=== PATIENT | female | born 1970 | race Caucasian/White ===

== ENCOUNTER → 2016-08-07 | Outpatient (CLI) | payer OTHER ==
[~2016-08-07] MED LIST: /AUGM875TA OR; ACET65TA OR; ALTA5CAP PO; AMLO10TA PO; AMLO2.5T OR; BENT10CA PO; CHLO50TA PO; COLA100C2 OR; CRES20TA OR; DICY10CA13 PO; GEMF600T PO; GLUC850T PO; INSUHUMDS SC; INSULANT SC; JANUVIA PO; METO25TAB PO; MULTIVIT PO; NYSTATIN TOP; No Historical Meds; OMEP20TA7 PO; PERC5TAB8 OR; PERCOCET PO; PRIL20CA9 PO; SLOWTAB OR; VITA500T OR; ZOLO50TA OR
--- NOTE | 2016-08-08 08:55 | REP ---
MRI right knee without contrast: History: Right knee pain. Arthritis. Popping and locking sensation. Comparison radiographs are reviewed from March 14, 2014. These show medial and patellofemoral osteoarthritic spurring. Technique: Sagittal, axial and coronal imaging planes are utilized for T1, proton density and T2-weighted scans obtained in the usual fashion with and without fat saturation. MRI findings: There is a large knee joint effusion. A moderate sized Jackson's cyst is seen. There are multiple discernible loose bodies within the elongate Jackson's cyst both cranially and caudally. The largest of these measures 8 mm in greatest diameter. There are suprapatellar plica. Cortical and medullary bone signal intensity are essentially normal. There is one area of subcortical marrow edema in the posterior aspect of the medial femoral condyle suggesting focal chondromalacia with mild bony overgrowth and a small articular cartilage defect. There is osteoarthritic spurring visible along the medial compartment of the joint and to a lesser extent laterally. Moderate patellofemoral spurring is noted. There is advanced chondromalacia involving lateral patellar facet with articular cartilage fissuring and some focal partial thickness articular cartilage loss. There are similar changes on the opposing surface of the femoral trochlear articular cartilage. There is subcutaneous edema along the proximal and distal aspect of the otherwise intact patellar tendon. Quadriceps tendon is unremarkable. Anterior and posterior cruciate ligaments have an intact appearance. There is no evidence of medial or lateral collateral ligament disruption. A normal fabella is seen. There is an inner free margin tear in the posterior horn of the medial meniscus. Some central increased signal intensity is seen in the posterior horn and body of the medial meniscus consistent with intrameniscal degeneration. No lateral meniscal tear is appreciated. Impression: 1. Jackson's cyst, large effusion, multiple cartilaginous loose bodies. 2. Three compartment osteoarthritis and chondromalacia changes. 3. Inner free margin tear posterior horn medial meniscus. 4. Prepatellar tendon edema, question patellar tinnitus. Signed by Butch oLu MD 08/08/2016 02:45 P
== END ==
LOC: M RAD 16:57
PROVIDERS: ATTEND Orthopaedic Surgery
DX: M25.461 Effusion, right knee (principal); M71.21 Synovial cyst of popliteal space [Baker], right knee; M17.11 Unilateral primary osteoarthritis, right knee; M94.261 Chondromalacia, right knee; S83.241A Other tear of medial meniscus, current injury, right knee, initial encounter; R60.0 Localized edema; X58.XXXA Exposure to other specified factors, initial encounter; Y92.9 Unspecified place or not applicable; Y93.9 Activity, unspecified; Y99.9 Unspecified external cause status

== ENCOUNTER → 2016-08-30 | Outpatient (REF) | payer OTHER | LOC: M LAB REF 16:29 | PROVIDERS: ATTEND Nurse Practitioner Family | DX: Z01.411 Encounter for gynecological examination (general) (routine) with abnormal findings (principal); N89.8 Other specified noninflammatory disorders of vagina ==

== ENCOUNTER → 2016-09-14 | Outpatient (CLI) | payer OTHER | LOC: M LAB 09:24 | PROVIDERS: ATTEND Nurse Practitioner Family | DX: E11.9 Type 2 diabetes mellitus without complications (principal); E78.5 Hyperlipidemia, unspecified ==

== ENCOUNTER 2016-10-09 18:53 | Emergency (ER) | payer OTHER ==
[~2016-10-09] VITALS: Ht 162.6 cm; Wt 90.7 kg
[2016-10-09] MEDS ORDERED: [UNRECOGNIZED DRUG - REMARK] (19:05)
[2016-10-09] MEDS ORDERED: LISI40TAB PO (19:05)
[2016-10-09 20:35] LABS: BASO % 0.4 % (0.0-1.0); EOS # 0.1 K/mm3 (0.0-0.50); EOS % 0.8 % (0.0-3.0); LARGE UNSTAINED CELL # 0.2 K/mm3 (0.0-0.4); LARGE UNSTAINED CELL % 1.9 % (0.0-4.0); LYMPH # 2.2 K/mm3 (1.5-4.5); LYMPH % 21.8 % (24.0-44.0); MEAN CORPUSCULAR HEMOGLOBIN 31.1 pg (27.0-33.0); MEAN CORPUSCULAR HGB CONC 34.3 g/dl (32.0-36.5); MEAN CORPUSCULAR VOLUME 90.4 fl (80.0-96.0); MONO # 0.6 K/mm3 (0.0-0.8); MONO % 6.2 % (0.0-5.0); NEUTROPHILS # 6.9 K/mm3 (1.8-7.7); NEUTROPHILS % 68.9 % (36.0-66.0); PLATELET COUNT, AUTOMATED 410 k/mm3 (150-450); RED CELL DISTRIBUTION WIDTH 12.3 % (11.5-14.5)
[2016-10-09 20:55] LABS: ANION GAP 8 MEQ/L (8-16); BLOOD UREA NITROGEN 15 MG/DL (7-18); CALCIUM LEVEL 9.2 MG/DL (8.5-10.1); CARBON DIOXIDE LEVEL 28 MEQ/L (21-32); CHLORIDE LEVEL 102 MEQ/L (98-107); CREATININE FOR GFR 0.93 MG/DL (0.55-1.02); GLOMERULAR FILTRATION RATE > 60.0 (>58); GLUCOSE, FASTING 144 MG/DL (70-105); POTASSIUM SERUM 3.8 MEQ/L (3.5-5.1); SODIUM LEVEL 138 MEQ/L (136-145); URIC ACID 4.7 MG/DL (2.6-6.0)
[2016-10-09 20:57] LABS: ERYTHROCYTE SEDIMENTATION RATE 34 mm/hr (0-20)
[2016-10-09] MEDS ORDERED: ceFAZolin SOD 1 GM in D5W MINI-BAG PLUS 50 ML IV ONE (22:00)
[2016-10-09] MEDS ORDERED: KETOROLAC 30 MG/ML VIAL (J1885) IV ONE (22:00)
[2016-10-09] MEDS ORDERED: KEFL500C7 PO (22:53)
[2016-10-09] MEDS ORDERED: IBUP600T26 PO (22:53)
[2016-10-09 23:11] VITALS: BP 129/78
--- NOTE | 2016-10-10 01:13 | REP ---
Clinical:,. Rule out foreign body. Technique: AP and lateral views of the right foot. Findings: Age-related changes are appreciated. No obvious acute fracture or dislocation. No subcutaneous emphysema or radiodense foreign body. Impression: Age-related changes. No foreign body. Signed by Agusto Dowd MD 10/10/2016 01:04 A
--- NOTE | 2016-10-10 01:19 | REP ---
Clinical: Trauma. Foreign body. Technique: AP, lateral, bilateral oblique views right foot . Findings: The osseous structures and joint spaces are intact and normal. There is no evidence for acute fracture or dislocation. Surrounding soft tissues are unremarkable. No subcutaneous emphysema or significant radiodense foreign body. Small flecks of foreign body material noted in the underline subcutaneous tissues at the level of the fifth tarsometatarsal joint should be correlated clinically. Impression: No acute fracture or dislocation. Questionable small foreign body material. Signed by Agusto Dowd MD 10/10/2016 01:11 A
--- NOTE | 2016-10-10 13:09 | ED PDOC ---
Post-Departure Follow-Up radiology report faxed to PCP Kaitlin Avery MD October 10, 2016 13:09
== END 2016-10-09 23:22 | disposition home or self-care (01) ==
LOC: M ED 20:05
DX: L03.115 Cellulitis of right lower limb (principal); S90.821A Blister (nonthermal), right foot, initial encounter; X58.XXXA Exposure to other specified factors, initial encounter; Y92.89 Other specified places as the place of occurrence of the external cause; Y93.89 Activity, other specified; Y99.8 Other external cause status; Z79.4 Long term (current) use of insulin; Z79.899 Other long term (current) drug therapy; Z91.018 Allergy to other foods; Z91.09 Other allergy status, other than to drugs and biological substances
CPT/HCPCS: 73620; 73630; 80048; 84550; 85025; 85652; 86140; 87070; 87077; 87186; 87205; 96365; 99282; J0690; J1885

== ENCOUNTER 2016-10-15 21:23 | Observation (INO) | payer OTHER ==
[~2016-10-15] VITALS: Ht 162.6 cm; Wt 90.7 kg
[~2016-10-15 21:23] MED LIST changes: +IBUP600T26 PO; +KEFL500C7 PO; +LEVEMIR (INSULIN DETEMIR) 1 UNITS/0.01ML SC SCH; +LISI40TAB PO; +LISINOPRIL 5 MG TAB PO SCH; +[UNRECOGNIZED DRUG - REMARK]
[2016-10-15 22:27] LABS: BASO % 0.2 % (0.0-1.0); EOS # 0.1 K/mm3 (0.0-0.50); EOS % 1.2 % (0.0-3.0); LARGE UNSTAINED CELL # 0.2 K/mm3 (0.0-0.4); LARGE UNSTAINED CELL % 1.8 % (0.0-4.0); LYMPH # 1.7 K/mm3 (1.5-4.5); LYMPH % 18.3 % (24.0-44.0); MEAN CORPUSCULAR HEMOGLOBIN 30.1 pg (27.0-33.0); MEAN CORPUSCULAR HGB CONC 33.5 g/dl (32.0-36.5); MEAN CORPUSCULAR VOLUME 89.8 fl (80.0-96.0); MONO # 0.5 K/mm3 (0.0-0.8); MONO % 5.6 % (0.0-5.0); NEUTROPHILS # 6.8 K/mm3 (1.8-7.7); NEUTROPHILS % 72.8 % (36.0-66.0); PLATELET COUNT, AUTOMATED 380 k/mm3 (150-450); RED CELL DISTRIBUTION WIDTH 12.3 % (11.5-14.5); WHITE BLOOD COUNT 9.4 K/mm3 (4.0-10.0)
[2016-10-15 22:35] LABS: ANION GAP 8 MEQ/L (8-16); BLOOD UREA NITROGEN 15 MG/DL (7-18); CALCIUM LEVEL 8.3 MG/DL (8.5-10.1); CARBON DIOXIDE LEVEL 28 MEQ/L (21-32); CHLORIDE LEVEL 100 MEQ/L (98-107); CREATININE FOR GFR 0.81 MG/DL (0.55-1.02); GLOMERULAR FILTRATION RATE > 60.0 (>58); GLUCOSE, FASTING 272 MG/DL (70-105); POTASSIUM SERUM 3.9 MEQ/L (3.5-5.1); SODIUM LEVEL 136 MEQ/L (136-145)
[2016-10-15] MEDS ORDERED: BASA100I SC ×2 (22:48)
[2016-10-15] MEDS ORDERED: ATOR1TAB21 PO (22:48)
[2016-10-15] MEDS ORDERED: ASPI1TAB PO (22:48)
[2016-10-15] MEDS ORDERED: CLIN1CAP5 PO (22:48)
[2016-10-15] MEDS ORDERED: METO25TA74 PO (22:48)
[2016-10-15] MEDS ORDERED: VITA200016 PO (22:48)
[2016-10-16] MEDS ORDERED: ceFAZolin SOD 1 GM in D5W MINI-BAG PLUS 50 ML IV ONE ×2
[2016-10-16] MEDS ORDERED: METOPROLOL SUCC *XL* 25MG TAB (TopROL *XL*) PO ONE
[2016-10-16] MEDS ORDERED: LISI-542 PO (00:21)
[2016-10-16] MEDS ORDERED: METO25TAB PO (00:23)
[2016-10-16] MEDS ORDERED: IBUP600T26 PO (00:24)
[2016-10-16] MEDS ORDERED: GLUCOSE 4 GM CHEW TABLET PO PRN (00:45)
[2016-10-16] MEDS ORDERED: GLUCAGON FOR INJ 1 MG VIAL (J1610) SC PRN (00:45)
[2016-10-16] MEDS ORDERED: DEXTROSE 50% 50 ML SYRINGE IV PRN (00:45)
[2016-10-16] MEDS ORDERED: ACETAMINOPHEN 500 MG TAB PO PRN (00:45)
--- NOTE | 2016-10-16 01:11 | REP ---
Clinical: Pain and swelling. Ulcer and cellulitis. Technique: AP, lateral, bilateral oblique views of the right foot. Findings: Degenerative changes primarily involving the ankle and midfoot are appreciated along with overlying soft tissue swelling. No subcutaneous emphysema or radiodense foreign body identified. No acute fracture or dislocation. No periosteal reaction. Impression: Degenerative changes. Soft-tissue swelling. No radiographic evidence to suggest acute osteomyelitis. Signed by Agusto Dowd MD 10/16/2016 01:02 A
[2016-10-16] MEDS: oxyCODONE 5MG TAB PO PRN ×2 (02:54→09:01)
[2016-10-16 03:45] VITALS: BP 162/90
--- NOTE | 2016-10-16 05:56 | HPE ---
DATE OF ADMISSION: 10/16/2016 PRIMARY CARE PHYSICIAN: NILDA Mai CHIEF COMPLAINT: Right lower extremity pain and swelling. HISTORY OF PRESENT ILLNESS: Ms. Parrish is a 46-year-old female with past medical history of diabetes and hypertension who presented to emergency room (ER) due to experiencing right lower extremity pain. Patient expressed that about 2 weeks ago patient had stepped on a staple, which penetrated through the skin of her right foot. She noticed pain which was sharp 5/10, stationary and bleeding. She noticed progressive increased in discharge with yellowish color as well as pain. Patient expressed that she went to [facility], which prescribe her clindamycin. Patient expressed that she has been taking the antibiotic, however, she noticed that her right lower extremity became swelled and more erythema, and the pain increased to the point that patient could not tolerate. Patient also expressed that yesterday she had one episode of chills. However, patient denies having any fever or night sweats. She thought that her chills is because of her glucose level since she has diabetes. she called emergency room medical representative (EMT) and she came to the ER. Patient denies altered mental status or lose of consciousness, lightheadedness or dizziness. Patient also denies seizure type activities. Patient expressed that her ambulation has decreased due to the pain. Patient has tingling and mild numbness in the right lower extremity and increased fatigue for the past week. ALLERGIES: No known drug allergies however patient has allergy to TAPE, which causes erythema. PAST MEDICAL HISTORY: 1. Diabetes mellitus. 2. Hypertension. PAST SURGICAL HISTORY: 1. Left lumpectomy. 2. Partial hysterectomy. HOME MEDICATION: - Norvasc 10 mg by mouth daily - aspirin 81 mg by mouth - atorvastatin 20 mg by mouth daily - Basaglar KwikPen 80 units before food, every morning - KwikPen 30 units before food, every evening - clindamycin 150 mg by mouth every 6 hours - dicyclomine 10 mg by mouth three times a day - gemfibrozil 600 mg by mouth twice a day - ibuprofen 600 mg by mouth every 6 hours as needed, pain - Humalog 10 mg before food three times a day before meal - lisinopril 5 mg by mouth nightly - metoprolol 25 mg by mouth twice a day - vitamin D 2000 unit by mouth every evening SOCIAL HISTORY: Patient denies history of smoking. Patient also denies history of alcohol usage or illicit drug use. Patient lives with a roommate. Patient has seven dogs, one cat, one lizard. Patient has not traveled outside the [place]. FAMILY HISTORY: Patient does not know about her parents. Grandma has hypertension and diabetes. Patient has a brother. However, patient does not know about patient's brother health assess. Patient has two boys and 1 girl all healthy. REVIEW OF SYSTEMS: GENERAL: Patient denies fever. However, patient has one episode of chills. Patient however, denies night sweats. HEENT: Patient denies acute vision or hearing changes. Patient denies headache , lightheadedness or dizziness. Patient also denies sinusitis. NECK: Patient denies lumps, bumps or decreased range of motion of her neck. HEART: Patient denies chest pain, palpitation or skipping heartbeat. LUNGS: Patient denies shortness of breath, coughing. ABDOMEN: Patient denies abdominal pain, nausea, vomiting diarrhea, constipation , melena, hematochezia or hemoptysis. NEUROLOGIC: Patient denies history of transient ischemic attack (TIA), CVA, or seizure-type activities. PHYSICAL EXAMINATION: VITAL SIGNS: Temperature 97.1, pulse 105, respiratory rate 20, blood pressure 187/91, pulse oximetry 97 on room air. GENERAL APPEARANCE: Patient was lying in bed, no acute distress. Patient was awake, alert and oriented to time, place and person. HEENT: Normocephalic, atraumatic. Pupils are equal. Oral mucosa is moist. NECK: Soft, supple. No lymphadenopathy. No thyromegaly. HEART: Regular rate and rhythm. Normal S1, S2. ABDOMEN: Soft, nontender, obese. Positive bowel sounds in all quadrants. EXTREMITY: Patient has right lower extremity swelling. There is also a site of penetration on the sole of the foot in the base of the 2nd and 3rd digit. However, no active bleeding or discharge was noticed. Patient also has blister at the base of the first digit that has burst. However, no active bleeding was noticed. Patient has tenderness to palpation on the right lower extremity as well as erythema on the supine surface of the foot. Patient has normal range of motion on the left lower extremity. However, range of motion of the right lower extremity has decreased due to the pain. Patient has normal sensation of both lower extremities as well as upper extremities. NEUROLOGICAL: Cranial nerves II-XII intact. No focal deficiencies. LABORATORY DATA: White blood cells 9.4, red blood cells 4.02, hemoglobin 12.1, hematocrit 36.2, MCV 89.8, MCH 30.1, MCHC 33.5, RDW 12.3, platelet count 380, neutrophil percentage 72.8, lymphocyte percentage 18.3, monocyte percentage 5.6, eosinophil percentage 1.2, basophil percentage 0.2, leukocyte percentage 1.8. Sodium 136, potassium 3.9, chloride 100, carbon dioxide 28, anion gap 8, BUN 15, creatinine 0.81, glomerular filtration rate more than 60, fasting glucose 272, calcium 8.3. Blood culture is pending. Wound culture is pending. Foot x-ray, which shows degenerative changes, soft tissue swelling. No radiological evidence of suggestive acute osteomyelitis. ASSESSMENT AND PLAN: 1. Cellulitis of the right lower extremity. X-ray was negative for acute osteomyelitis. Patient received one dose of ceftaroline at the ER. At this time, we have started patient on ceftaroline 600 mg IV every 12. Also, for controlling the pain, patient is on oxycodone. we have ordered blood culture and wound culture and the gram stain result is pending at this time. 2. Diabetes mellitus. patient is on sliding scale as well as consistent carb diet. 3. Hypertension. We will continue patient on Norvasc 10 mg by mouth daily, Lopressor 25 mg by mouth twice a day. 4. Hyperlipidemia. We will continue patient on gemfibrozil 600 mg by mouth and Lipitor 20 mg by mouth daily. 5. Deep venous thrombosis (DVT) prophylaxis. We will continue patient on Lovenox. My preceptor for this patient encounter was Ariana Bowser MD. The preceptor was physically present in the building during the encounter and was fully available. As needed, all aspects of the patient interview, examination, medical decision making process, and medical care plan development were reviewed and approved by the preceptor. The preceptor is aware and concurs with the plan as stated in the body of this note and will attest to such by his/her co-signature. WENDI
[2016-10-16] MEDS ORDERED: HumaLOG INSULIN (NovoLOG) PER UNIT SC SCH ×2 (07:30→21:00)
[2016-10-16 07:31] LABS: MEAN CORPUSCULAR HGB CONC 34.5 g/dl (32.0-36.5); MEAN CORPUSCULAR VOLUME 89.8 fl (80.0-96.0); RED CELL DISTRIBUTION WIDTH 12.2 % (11.5-14.5); WHITE BLOOD COUNT 8.7 K/mm3 (4.0-10.0)
[2016-10-16 07:42] LABS: ANION GAP 6 MEQ/L (8-16); BLOOD UREA NITROGEN 11 MG/DL (7-18); CALCIUM LEVEL 8.7 MG/DL (8.5-10.1); CARBON DIOXIDE LEVEL 29 MEQ/L (21-32); CHLORIDE LEVEL 102 MEQ/L (98-107); CREATININE FOR GFR 0.72 MG/DL (0.55-1.02); GLOMERULAR FILTRATION RATE > 60.0 (>58); GLUCOSE, FASTING 173 MG/DL (70-105); MAGNESIUM LEVEL 1.6 MG/DL (1.8-2.4); POTASSIUM SERUM 3.9 MEQ/L (3.5-5.1); SODIUM LEVEL 137 MEQ/L (136-145)
[2016-10-16 08:00] VITALS: BP 143/72
[2016-10-16 09:00] VITALS: BP 143/72
[2016-10-16] MEDS ORDERED: GEMFIBROZIL 600 MG TAB PO SCH (09:00)
[2016-10-16] MEDS ORDERED: ENOXAPARIN 40 MG/0.4 ML SYRINGE (J1650) SC SCH (09:00)
[2016-10-16] MEDS ORDERED: LEVEMIR (INSULIN DETEMIR) 1 UNITS/0.01ML SC SCH (09:00)
[2016-10-16] MEDS ORDERED: ASPIRIN 81 MG ENTERIC TAB PO SCH (09:00)
[2016-10-16] MEDS ORDERED: amLODIPine 10 MG TAB PO SCH (09:00)
[2016-10-16] MEDS ORDERED: METOPROLOL TART 25 MG TABLET PO SCH (09:00)
[2016-10-16] MEDS ORDERED: SENOKOT S TAB PO SCH (09:00)
[2016-10-16] MEDS ORDERED: ATORVASTATIN 20 MG TAB PO SCH (09:00)
[2016-10-16] MEDS ORDERED: CEFTAROLINE FOSAMIL 600 MG in D5W MINI-BAG PLUS 50 ML IV SCH (12:00)
[2016-10-16] MEDS ORDERED: DALV1SOL IV (12:03)
--- NOTE | 2016-10-17 11:36 | DSES ---
DATE OF ADMISSION: 10/16/2016 DATE OF DISCHARGE: 10/16/2016 PRIMARY CARE PROVIDER: Liliana Gorman FINAL DIAGNOSES: 1. Cellulitis. 2. Obesity. 3. Diabetes mellitus type 2. 4. Hypertension. 5. Dyslipidemia. HISTORY OF PRESENT ILLNESS: This is a 46-year-old female patient with a known medical history of type 2 diabetes and hypertension who presented to the emergency room due to experiencing right lower extremity pain. The patient expressed that about 2 weeks ago, the patient had stepped on a staple, which penetrated through the skin on her right foot. After that, the patient expressed that she felt pain and bleeding and noticed mild increase in discharge of yellowish color. The patient expressed that she had been given clindamycin but has not been improved much. HOSPITAL COURSE: The patient was admitted to the hospital overnight, given Teflaro. Cultures were sent, as well as gram stain. The patient's exudate has improved. Patient and family services (PFS) was consulted for Dalvance to be given at home. Subsequently, arrangements are made, and the patient currently tolerating oral. In no acute distress. Afebrile. With no significant leukocytosis. Ready for discharge for further care as outpatient. Vital signs: Temperature 97.6, pulse 85, respiration 18, blood pressure 143/72, pulse oximetry 96% on room air. LABORATORY: WBC 8.7, hemoglobin and hematocrit 11.6/33.7, platelets 380. Chemistry: Sodium 137, potassium 3.9, chloride 102, bicarbonate 29, BUN 11, creatinine 0.72, magnesium 1.6. DISCHARGE MEDICATIONS: - one dose of Dalvance 1500 mg intravenous (IV) will be given later tonight The patient's home medications: - Norvasc 10 mg by mouth daily - aspirin 81 mg by mouth daily - Lipitor 20 mg by mouth daily - insulin, Basaglar 80 units subcutaneous every morning and 30 units each evening is to be continued - dicyclomine 10 mg by mouth three times a day - gemfibrozil 600 mg by mouth twice a day - ibuprofen 600 mg by mouth every 6 hours as needed - Humulin insulin 10 units subcutaneous - lisinopril 5 mg by mouth nightly - metoprolol 25 mg by mouth twice a day - vitamin D 2000 units by mouth each evening Were continued. DISCHARGE INSTRUCTIONS: The patient is instructed to followup her glucose closely. Maintain close tight control of her fingersticks, given she has an active infection. Return to the hospital if symptoms worsen. Followup with primary care provider in 7 days.
== END 2016-10-16 13:50 | disposition home or self-care (01) ==
LOC: M ED 23:13 → M PED 23:14 → M ED INP 10-16 00:35 → UNDOADMOB 10-16 00:35 → M PED 10-16 03:28 → M ED INP 10-16 03:28 → UNDODISOB 10-16 13:50
PROVIDERS: ADMIT Internal Medicine Nephrology; ATTEND Hospitalist
DX: L03.115 Cellulitis of right lower limb (principal); E11.628 Type 2 diabetes mellitus with other skin complications; E66.9 Obesity, unspecified; I10 Essential (primary) hypertension; E78.5 Hyperlipidemia, unspecified; Z79.899 Other long term (current) drug therapy; Z79.82 Long term (current) use of aspirin; Z79.4 Long term (current) use of insulin; Z91.048 Other nonmedicinal substance allergy status

== ENCOUNTER 2016-11-17 14:13 | Emergency (ER) | payer OTHER ==
[~2016-11-17] VITALS: Ht 162.6 cm; Wt 94.8 kg
[~2016-11-17 14:13] MED LIST changes: +ASPI1TAB PO; +ATOR1TAB21 PO; +BASA100I SC; +CLIN1CAP5 PO; +DALV1SOL IV; -LEVEMIR (INSULIN DETEMIR) 1 UNITS/0.01ML SC SCH; +LISI-542 PO; -LISINOPRIL 5 MG TAB PO SCH; +METO25TA74 PO; +VITA200016 PO
[2016-11-17] MEDS ORDERED: unable to verify (14:36)
[2016-11-17] MEDS ORDERED: ACETAMINOPH W/CODEINE #3 TAB UD PO ONE (15:00)
[2016-11-17 15:17] LABS: BASO % 0.9 % (0.0-1.0); EOS # 0.3 K/mm3 (0.0-0.50); EOS % 5.2 % (0.0-3.0); LARGE UNSTAINED CELL # 0.1 K/mm3 (0.0-0.4); LARGE UNSTAINED CELL % 1.2 % (0.0-4.0); LYMPH # 1.7 K/mm3 (1.5-4.5); LYMPH % 28.2 % (24.0-44.0); MEAN CORPUSCULAR HEMOGLOBIN 30.4 pg (27.0-33.0); MEAN CORPUSCULAR HGB CONC 33.3 g/dl (32.0-36.5); MEAN CORPUSCULAR VOLUME 91.4 fl (80.0-96.0); MONO # 0.4 K/mm3 (0.0-0.8); MONO % 7.5 % (0.0-5.0); NEUTROPHILS # 3.3 K/mm3 (1.8-7.7); NEUTROPHILS % 56.9 % (36.0-66.0); PLATELET COUNT, AUTOMATED 346 k/mm3 (150-450); RED CELL DISTRIBUTION WIDTH 13.6 % (11.5-14.5); WHITE BLOOD COUNT 5.8 K/mm3 (4.0-10.0)
[2016-11-17 15:38] LABS: ANION GAP 5 MEQ/L (8-16); BLOOD UREA NITROGEN 15 MG/DL (7-18); CALCIUM LEVEL 8.8 MG/DL (8.5-10.1); CARBON DIOXIDE LEVEL 29 MEQ/L (21-32); CHLORIDE LEVEL 107 MEQ/L (98-107); CREATININE FOR GFR 0.86 MG/DL (0.55-1.02); GLOMERULAR FILTRATION RATE > 60.0 (>58); GLUCOSE, FASTING 137 MG/DL (70-105); POTASSIUM SERUM 4.1 MEQ/L (3.5-5.1); SODIUM LEVEL 141 MEQ/L (136-145)
[2016-11-17 16:10] LABS: ERYTHROCYTE SEDIMENTATION RATE 39 mm/hr (0-20)
[2016-11-17] MEDS ORDERED: TRAM50TA2 PO (16:22)
[2016-11-17 16:30] VITALS: BP 109/61
== END 2016-11-17 16:36 | disposition home or self-care (01) ==
LOC: M ED 14:48
DX: L97.519 Non-pressure chronic ulcer of other part of right foot with unspecified severity (principal); E10.40 Type 1 diabetes mellitus with diabetic neuropathy, unspecified; J45.909 Unspecified asthma, uncomplicated; F32.9 Major depressive disorder, single episode, unspecified; Z79.899 Other long term (current) drug therapy; Z79.82 Long term (current) use of aspirin; Z91.018 Allergy to other foods; Z91.048 Other nonmedicinal substance allergy status

== ENCOUNTER → 2017-01-01 | Outpatient (CLI) | payer OTHER ==
[~2017-01-01] MED LIST changes: +ALBU17IN INH; +CLIN150C14 PO; -CLIN1CAP5 PO; +IBUP-1022 PO; -IBUP600T26 PO; +KEFL500C17 PO; -KEFL500C7 PO; +METO1TAB32 PO; +METO25TA4 PO; -METO25TA74 PO; +TRAM50TA2 PO; +ZITHTAB PO; +unable to verify
== END ==
LOC: M RAD 16:48
PROVIDERS: ATTEND Physician Assistant Surgical
DX: E11.621 Type 2 diabetes mellitus with foot ulcer (principal); L97.519 Non-pressure chronic ulcer of other part of right foot with unspecified severity

== ENCOUNTER → 2017-01-07 | Outpatient (REF) | payer OTHER ==
[2017-01-08 13:20] LABS: ALBUMIN 3.3 GM/DL (3.2-5.2); ALBUMIN/GLOBULIN RATIO 0.72 (1.00-1.93); BILIRUBIN,TOTAL 0.3 MG/DL (0.2-1.0); CALCIUM LEVEL 9.8 MG/DL (8.5-10.1); CREATININE FOR GFR 1.1 MG/DL (0.55-1.02); GLOMERULAR FILTRATION RATE 57.2 (>58); POTASSIUM SERUM 4.3 MEQ/L (3.5-5.1); TOTAL PROTEIN 7.9 GM/DL (6.4-8.2)
== END ==
LOC: M LAB REF 16:30
PROVIDERS: ATTEND Surgery
DX: E11.621 Type 2 diabetes mellitus with foot ulcer (principal); L97.413 Non-pressure chronic ulcer of right heel and midfoot with necrosis of muscle

== ENCOUNTER → 2017-02-06 | Outpatient (CLI) | payer OTHER ==
--- NOTE | 2017-02-06 13:40 | REP ---
MRI RIGHT FOOT WITH AND WITHOUT CONTRAST: TECHNIQUE: Multiple sequences obtained in the axial, coronal and sagittal planes prior to and following the intravenous administration of 9 mL of Gadolinium. There is mild ill-defined marrow edema in the lateral aspect of the cuboid bone. This area demonstrates possible subtle ill-defined enhancement on the post contrast images raising the possibility of very mild osteomyelitis. No other abnormal marrow signal or edema is seen and there is no other evidence of marrow enhancement. Diffuse ill-defined soft tissue edema is seen, with diffuse ill-defined high signal on T2-weighted imaging. There is also diffuse ill-defined enhancement of the soft tissues compatible with cellulitis. No abscess collection is seen. There is no tenosynovitis. IMPRESSION: Cellulitis of the right foot without evidence of abscess collection. Mild marrow edema in the lateral aspect of the cuboid bone with possible subtle associated enhancement on the post contrast images. This may indicate very mild osteomyelitis at this location. Signed by Thony Guerrero MD 02/06/2017 04:41 P
== END ==
LOC: M RAD 10:52
PROVIDERS: ATTEND Surgery
DX: E11.621 Type 2 diabetes mellitus with foot ulcer (principal); L97.413 Non-pressure chronic ulcer of right heel and midfoot with necrosis of muscle; L03.115 Cellulitis of right lower limb
CPT/HCPCS: 73720; A9576

== ENCOUNTER → 2017-02-12 | Outpatient (REF) | payer OTHER | LOC: M LAB REF 16:21 | PROVIDERS: ATTEND Surgery | DX: E11.621 Type 2 diabetes mellitus with foot ulcer (principal) ==

== ENCOUNTER 2017-02-25 19:49 | Emergency (ER) | payer OTHER ==
[~2017-02-25] VITALS: Ht 162.6 cm; Wt 90.0 kg
[~2017-02-25 19:49] MED LIST changes: -ALBU17IN INH; -ZITHTAB PO
[2017-02-26] MEDS ORDERED: ALBU17IN INH (00:42)
[2017-02-26] MEDS ORDERED: ZITHTAB PO (00:42)
[2017-02-26] MEDS ORDERED: ACETAMINOPHEN 325 MG TAB PO ONE (00:45)
[2017-02-26] MEDS ORDERED: AZITHROMYCIN 250 MG TAB PO ONE (00:45)
[2017-02-26 00:54] VITALS: BP 144/89
== END 2017-02-26 00:55 | disposition home or self-care (01) ==
LOC: M ED 19:49
DX: J20.9 Acute bronchitis, unspecified (principal); H93.90 Unspecified disorder of ear, unspecified ear; J45.909 Unspecified asthma, uncomplicated; E11.9 Type 2 diabetes mellitus without complications; E78.9 Disorder of lipoprotein metabolism, unspecified; I10 Essential (primary) hypertension; Z91.018 Allergy to other foods; Z79.899 Other long term (current) drug therapy; Z79.4 Long term (current) use of insulin; Z79.82 Long term (current) use of aspirin

== ENCOUNTER → 2017-03-05 | Outpatient (REF) | payer OTHER ==
[~2017-03-05] MED LIST changes: +ALBU17IN INH; +ZITHTAB PO
[2017-03-05 18:21] LABS: BASO # 0.1 10^3/uL (0.0-0.2); BASO % 1.3 % (0.0-1.0); EOS # 0.5 10^3/uL (0.0-0.50); EOS % 5.8 % (0.0-3.0); IMMATURE GRANULOCYTE % 0.4 % (0-0); LYMPH # 2.9 10^3/uL (1.5-4.5); MEAN CORPUSCULAR HEMOGLOBIN 28.9 pg (27.0-33.0); MEAN CORPUSCULAR HGB CONC 34.4 g/dl (32.0-36.5); MEAN CORPUSCULAR VOLUME 84.1 fl (80.0-96.0); MONO # 0.8 10^3/uL (0.0-0.8); MONO % 10.1 % (0.0-5.0); NEUTROPHILS # 3.6 10^3/uL (1.8-7.7); NEUTROPHILS % 45.4 % (36.0-66.0); PLATELET COUNT, AUTOMATED 390 10^3/uL (150-450); RED CELL DISTRIBUTION WIDTH 12.3 % (11.5-14.5); WHITE BLOOD COUNT 7.9 10^3/uL (4.0-10.0)
[2017-03-05 18:47] LABS: ADD MORPHOLOGY? NO
[2017-03-05 21:21] LABS: ERYTHROCYTE SEDIMENTATION RATE 24 mm/hr (0-20)
== END ==
LOC: M SFHCPLAZ 14:06
PROVIDERS: ATTEND Internal Medicine Infectious Disease
DX: A49.01 Methicillin susceptible Staphylococcus aureus infection, unspecified site (principal); Z11.4 Encounter for screening for human immunodeficiency virus [HIV]; B37.3 Candidiasis of vulva and vagina

== ENCOUNTER → 2018-05-05 | Outpatient (REF) | payer OTHER, MEDICAID ==
[2018-05-05 12:53] LABS: ALBUMIN 3.2 GM/DL (3.2-5.2); ALBUMIN/GLOBULIN RATIO 0.74 (1.00-1.93); ALKALINE PHOSPHATASE 104 U/L (45-117); ALT/SGPT 28 U/L (12-78); ANION GAP 9 MEQ/L (8-16); AST/SGOT 17 U/L (7-37); BILIRUBIN,TOTAL 0.3 MG/DL (0.2-1.0); BLOOD UREA NITROGEN 21 MG/DL (7-18); CALCIUM LEVEL 9.3 MG/DL (8.5-10.1); CARBON DIOXIDE LEVEL 32 MEQ/L (21-32); CHLORIDE LEVEL 99 MEQ/L (98-107); CREATININE FOR GFR 0.82 MG/DL (0.55-1.30); GLOMERULAR FILTRATION RATE > 60.0 (>58); GLUCOSE, FASTING 139 MG/DL (70-100); POTASSIUM SERUM 3.8 MEQ/L (3.5-5.1); SODIUM LEVEL 140 MEQ/L (136-145); TOTAL PROTEIN 7.5 GM/DL (6.4-8.2)
[2018-05-05 14:20] LABS: ESTIMATED AVERAGE GLUCOSE 235 MG/DL (60-110); HEMOGLOBIN A1c 9.8 %
== END ==
LOC: M LAB REF 11:45
DX: E11.9 Type 2 diabetes mellitus without complications (principal)
CPT/HCPCS: 80053

== ENCOUNTER 2018-08-08 18:43 | Emergency (ER) | payer MEDICAID, OTHER ==
[~2018-08-08] VITALS: Ht 162.6 cm; Wt 104.7 kg
[2018-08-08 18:43] VITALS: BP 165/92
[~2018-08-08 18:43] MED LIST changes: -GEMF600T PO; +GEMF600T5 PO; +LISI40TA PO; -LISI40TAB PO
[2018-08-08] MEDS ORDERED: VALA-3 (18:53)
[2018-08-08] MEDS ORDERED: GLIP5TAB20 (18:53)
[2018-08-08] MEDS ORDERED: GABA-1171 (18:53)
[2018-08-08] MEDS ORDERED: GEMF600T5 (18:53)
[2018-08-08] MEDS ORDERED: FLUO10TA2 (18:53)
[2018-08-08] MEDS ORDERED: LIDOCAINE 4% CREAM 5GM (LMX4) TOP ONE (19:45)
[2018-08-08] MEDS ORDERED: BACT800T5 PO (20:41)
== END 2018-08-08 20:46 | disposition home or self-care (01) ==
LOC: M ED 18:43
DX: L03.012 Cellulitis of left finger (principal)

== ENCOUNTER → 2018-09-18 | Outpatient (REF) | payer OTHER ==
[~2018-09-18] MED LIST changes: -ASPI1TAB PO; +ASPI81TA26 PO; +BACT800T5 PO; +FLUO10TA2; +GABA-1171; +GEMF600T5; +GLIP5TAB20; +METO1TAB63 PO; -METO25TAB PO; +VALA-3
[2018-09-18 20:00] LABS: BASO # 0.1 10^3/uL (0.0-0.2); BASO % 1.4 % (0.0-1.0); EOS # 0.7 10^3/uL (0.0-0.50); EOS % 8.9 % (0.0-3.0); HEMATOCRIT 43.6 % (36.0-47.0); HEMOGLOBIN 14.8 g/dl (12.0-15.5); LYMPH # 2.1 10^3/uL (1.5-4.5); MEAN CORPUSCULAR HEMOGLOBIN 28.7 pg (27.0-33.0); MEAN CORPUSCULAR HGB CONC 33.9 g/dl (32.0-36.5); MEAN CORPUSCULAR VOLUME 84.5 fl (80.0-96.0); MONO # 0.6 10^3/uL (0.0-0.8); MONO % 8.7 % (0.0-5.0); NEUTROPHILS # 3.8 10^3/uL (1.8-7.7); NEUTROPHILS % 51.9 % (36.0-66.0); PLATELET COUNT, AUTOMATED 346 10^3/uL (150-450); RED BLOOD COUNT 5.16 10^6/uL (4.00-5.40); WHITE BLOOD COUNT 7.4 10^3/uL (4.0-10.0)
[2018-09-18 20:25] LABS: APPEARANCE, URINE CLEAR (CLEAR); BACTERIA, URINE AUTO 2+ (NEGATIVE); BILIRUBIN, URINE AUTO NEGATIVE (NEGATIVE); BLOOD, URINE BLOOD NEGATIVE (NEGATIVE); COLOR, URINE YELLOW (YELLOW); GLUCOSE, URINE (UA) AUTO 3+ mg/dL (NEGATIVE); KETONE, URINE AUTO 1+ mg/dL (NEGATIVE); LEUKOCYTE ESTERASE, URINE AUTO NEGATIVE (NEGATIVE); MUCUS, URINE MODERATE (NEGATIVE); NITRITE, URINE AUTO NEGATIVE (NEGATIVE); PROTEIN, URINE AUTO NEGATIVE (NEGATIVE); RBC, URINE AUTO 2 /HPF (0-3); SPECIFIC GRAVITY URINE AUTO 1.031 (1.002-1.035); SQUAMOUS EPITHELIAL CELL UR AU 4 /HPF (0-6); UROBILINOGEN, URINE AUTO 0.2 mg/dL (0.0-2.0); WBC, URINE AUTO 3 /HPF (0-3)
[2018-09-18 20:32] LABS: ALBUMIN 3.5 GM/DL (3.2-5.2); ALT/SGPT 25 U/L (12-78); BILIRUBIN,TOTAL 0.4 MG/DL (0.2-1.0); BLOOD UREA NITROGEN 20 MG/DL (7-18); CALCIUM LEVEL 9.3 MG/DL (8.5-10.1); CARBON DIOXIDE LEVEL 27 MEQ/L (21-32); CHLORIDE LEVEL 102 MEQ/L (98-107); CHOLESTEROL LEVEL 213 MG/DL (<200); CHOLESTEROL RISK RATIO 6.454 (<5); CREATININE FOR GFR 0.85 MG/DL (0.55-1.30); GLOMERULAR FILTRATION RATE > 60.0 (>58); GLUCOSE, FASTING 294 MG/DL (70-100); HDL CHOLESTEROL 33 MG/DL (>40); LDL CHOLESTEROL 127 MG/DL (<100); NON-HDL-C 180 MG/DL; POTASSIUM SERUM 4.4 MEQ/L (3.5-5.1); SODIUM LEVEL 137 MEQ/L (136-145); TOTAL 25(OH) VITAMIN D 37.5 NG/ML (30.0-100.0); TOTAL PROTEIN 7.4 GM/DL (6.4-8.2); TRIGLYCERIDES LEVEL 264 MG/DL (<150)
[2018-09-18 20:35] LABS: MALB URINE SIEMENS 65.9 MG/L; MAU/CREAT RATIO 28.4 MCG/MG (0.0-30.0)
[2018-09-18 20:37] LABS: HEMOGLOBIN A1c 12.8 %
== END ==
LOC: M LAB REF 18:47
PROVIDERS: ATTEND Nurse Practitioner Family
DX: Z13.9 Encounter for screening, unspecified (principal); E11.9 Type 2 diabetes mellitus without complications; I10 Essential (primary) hypertension; E78.5 Hyperlipidemia, unspecified

== ENCOUNTER → 2018-10-02 | Outpatient (CLI) | payer OTHER | LOC: M RAD 10:53 | PROVIDERS: ATTEND Nurse Practitioner Family | DX: Z12.31 Encounter for screening mammogram for malignant neoplasm of breast (principal); Z53.9 Procedure and treatment not carried out, unspecified reason ==

== ENCOUNTER → 2019-01-08 | Outpatient (REF) | payer OTHER ==
[2019-01-08 13:07] LABS: BASO # 0.1 10^3/uL (0.0-0.2); BASO % 0.8 % (0.0-1.0); EOS # 0.5 10^3/uL (0.0-0.50); EOS % 5.2 % (0.0-3.0); HEMATOCRIT 40.1 % (36.0-47.0); HEMOGLOBIN 13.7 g/dl (12.0-15.5); LYMPH # 2.9 10^3/uL (1.5-4.5); LYMPH % 33.1 % (24.0-44.0); MEAN CORPUSCULAR HEMOGLOBIN 29.7 pg (27.0-33.0); MEAN CORPUSCULAR HGB CONC 34.2 g/dl (32.0-36.5); MONO # 1.1 10^3/uL (0.0-0.8); MONO % 12.6 % (0.0-5.0); NEUTROPHILS # 4.3 10^3/uL (1.8-7.7); NEUTROPHILS % 48.1 % (36.0-66.0); PLATELET COUNT, AUTOMATED 376 10^3/uL (150-450); RED BLOOD COUNT 4.61 10^6/uL (4.00-5.40); WHITE BLOOD COUNT 8.9 10^3/uL (4.0-10.0)
[2019-01-08 13:11] LABS: ALBUMIN 3.6 GM/DL (3.2-5.2); BILIRUBIN,TOTAL 0.7 MG/DL (0.2-1.0); CALCIUM LEVEL 9.3 MG/DL (8.5-10.1); CHOLESTEROL RISK RATIO 3.5 (<5); CREATININE FOR GFR 1.15 MG/DL (0.55-1.30); GLOMERULAR FILTRATION RATE 53.8 (>58); POTASSIUM SERUM 3.8 MEQ/L (3.5-5.1); TOTAL PROTEIN 7.4 GM/DL (6.4-8.2)
[2019-01-08 14:12] LABS: HEMOGLOBIN A1c 8.2 %
== END ==
LOC: M LAB REF 12:11
PROVIDERS: ATTEND Nurse Practitioner Adult Health
DX: I10 Essential (primary) hypertension (principal); E78.5 Hyperlipidemia, unspecified

== ENCOUNTER → 2019-01-19 | Outpatient (REF) | payer OTHER | LOC: M LAB REF 17:01 | PROVIDERS: ATTEND Podiatrist | DX: L03.031 Cellulitis of right toe (principal) ==

== ENCOUNTER → 2019-03-03 | Outpatient (REF) | payer OTHER, MEDICAID ==
[2019-03-03 22:13] LABS: CHLAMYDIA DNA AMPLIFICATION NEGATIVE (NEGATIVE); GC DNA AMPLIFICATION NEGATIVE (NEGATIVE)
== END ==
LOC: M LAB REF 20:02
PROVIDERS: ATTEND Nurse Practitioner Family
DX: R30.0 Dysuria (principal)

== ENCOUNTER 2019-06-08 20:05 | Emergency (ER) | payer MEDICAID, OTHER ==
[~2019-06-08] VITALS: Ht 162.6 cm; Wt 97.7 kg
[2019-06-08] MEDS ORDERED: HYDR50TA70 (20:53)
[2019-06-08] MEDS ORDERED: IBUPROFEN 800 MG TAB PO ONE (22:15)
[2019-06-08 22:52] VITALS: BP 134/87
--- NOTE | 2019-06-08 23:08 | REPVR ---
PROCEDURE INFORMATION: Exam: CT Chest Without Contrast Exam date and time: 06/08/2019 10:34 PM Age: 49 years old Clinical indication: Chest pain; Additional info: Right rib pain, no fractures on xray TECHNIQUE: Imaging protocol: Computed tomography of the chest without contrast. 3D rendering: MIP and/or 3D reconstructed images were created by the technologist. Radiation optimization: All CT scans at this facility use at least one of these dose optimization techniques: automated exposure control; mA and/or kV adjustment per patient size (includes targeted exams where dose is matched to clinical indication); or iterative reconstruction. COMPARISON: CT Chest with contrast 06/28/2015 8:48 PM FINDINGS: Lungs: Unremarkable. No consolidation. No masses. Pleural space: Unremarkable. No pneumothorax. No pleural effusion. Heart: Unremarkable. No cardiomegaly. No pericardial effusion. Aorta: Unremarkable. No aortic aneurysm. Lymph nodes: Unremarkable. No enlarged lymph nodes. Gallbladder and bile ducts: Cholecystectomy Bones/joints: The spine demonstrates mild degenerative changes. Fractures of the transverse processes of L1, and L2 on the left and a displaced transverse process on the right at L1 also consistent with a fracture although it is corticated appearance may indicate a chronic finding rather than acute and should be correlated clinically. Notably, the fractures were not present on the prior 2016 examination. Soft tissues: Unremarkable. Other findings: Examination of T11 demonstrates a prominent vascular groove on the left noted on the prior study. IMPRESSION: 1. Fractures of the transverse processes of L1, and L2 on the left and a displaced transverse process on the right at L1 also consistent with a fracture although it is corticated appearance may indicate a chronic finding rather than acute and should be correlated clinically. Notably, the fractures were not present on the prior 2016 examination. 2. Otherwise unremarkable. Electronically signed by: Landon Landis On 06/08/2019 23:08:04 PM
--- NOTE | 2019-06-09 07:27 | REP ---
Clinical: Trauma. Technique: Frontal view of the chest with multiple views of the right hemithorax. Findings: Frontal view of the chest demonstrates no acute cardiopulmonary process. Multiple views of the right hemithorax demonstrates no obvious acute rib fracture or pathology. Impression: Normal right rib series Electronically Signed by Agusto Dowd MD 06/09/2019 07:19 A
== END 2019-06-08 23:57 | disposition home or self-care (01) ==
LOC: M ED 20:05
DX: S32.019A Unspecified fracture of first lumbar vertebra, initial encounter for closed fracture (principal); W00.0XXA Fall on same level due to ice and snow, initial encounter; Y92.018 Other place in single-family (private) house as the place of occurrence of the external cause; R07.81 Pleurodynia; E11.9 Type 2 diabetes mellitus without complications; I10 Essential (primary) hypertension; E78.5 Hyperlipidemia, unspecified; Z79.899 Other long term (current) drug therapy; Z79.82 Long term (current) use of aspirin; Z79.4 Long term (current) use of insulin

== ENCOUNTER → 2019-07-14 | Outpatient (REF) | payer OTHER, MEDICAID ==
[~2019-07-14] MED LIST changes: +HYDR50TA70
[2019-07-14 18:14] LABS: ALBUMIN 3.5 GM/DL (3.2-5.2); ALT/SGPT 19 U/L (12-78); BILIRUBIN,TOTAL 0.4 MG/DL (0.2-1.0); BLOOD UREA NITROGEN 19 MG/DL (7-18); CALCIUM LEVEL 8.9 MG/DL (8.5-10.1); CARBON DIOXIDE LEVEL 29 MEQ/L (21-32); CHLORIDE LEVEL 107 MEQ/L (98-107); CHOLESTEROL LEVEL 156 MG/DL (<200); CHOLESTEROL RISK RATIO 3.545 (<5); CREATININE FOR GFR 0.84 MG/DL (0.55-1.30); FREE T4 0.93 NG/DL (0.76-1.46); GLOMERULAR FILTRATION RATE > 60.0 (>58); GLUCOSE, FASTING 99 MG/DL (70-100); HDL CHOLESTEROL 44 MG/DL (>40); LDL CHOLESTEROL 94 MG/DL (<100); NON-HDL-C 112 MG/DL; POTASSIUM SERUM 4.5 MEQ/L (3.5-5.1); SODIUM LEVEL 142 MEQ/L (136-145); THYROID STIMULATING HORMONE 0.964 uIU/ML (0.358-3.740); TOTAL PROTEIN 7.1 GM/DL (6.4-8.2); TRIGLYCERIDES LEVEL 90 MG/DL (<150)
[2019-07-14 18:17] LABS: HEMOGLOBIN A1c 8.4 %; TOTAL 25(OH) VITAMIN D 46.8 NG/ML (30.0-100.0)
[2019-07-14 18:28] LABS: BASO # 0.1 10^3/uL (0.0-0.2); BASO % 1.5 % (0.0-1.0); EOS # 0.2 10^3/uL (0.0-0.5); EOS % 4.3 % (0.0-3.0); HEMATOCRIT 41.7 % (36.0-47.0); HEMOGLOBIN 13.8 g/dl (12.0-15.5); LYMPH % 36.4 % (24.0-44.0); MEAN CORPUSCULAR HEMOGLOBIN 29.5 pg (27.0-33.0); MEAN CORPUSCULAR HGB CONC 33.1 g/dl (32.0-36.5); MEAN CORPUSCULAR VOLUME 89.1 fl (80.0-96.0); MONO # 0.6 10^3/uL (0.0-0.8); MONO % 10.3 % (0.0-5.0); NEUTROPHILS # 2.5 10^3/uL (1.5-8.5); NEUTROPHILS % 47.3 % (36.0-66.0); PLATELET COUNT, AUTOMATED 367 10^3/uL (150-450); RED BLOOD COUNT 4.68 10^6/uL (4.00-5.40); WHITE BLOOD COUNT 5.4 10^3/uL (4.0-10.0)
== END ==
LOC: M LAB REF 16:46
PROVIDERS: ATTEND Nurse Practitioner Family
DX: R30.0 Dysuria (principal); R94.4 Abnormal results of kidney function studies; G47.00 Insomnia, unspecified; Z13.9 Encounter for screening, unspecified; M25.569 Pain in unspecified knee; I10 Essential (primary) hypertension; E78.5 Hyperlipidemia, unspecified

== ENCOUNTER → 2020-12-21 | Outpatient (REF) | payer OTHER, MEDICAID ==
[~2020-12-21] MED LIST changes: -CLIN150C14 PO; +CLIN150C15 PO; -LISI-542 PO; +LISI-898 PO; -LISI40TA PO; +LISI40TA4 PO
== END ==
LOC: M LAB REF 17:26
PROVIDERS: ATTEND Podiatrist
DX: M79.671 Pain in right foot (principal)

== ENCOUNTER → 2021-03-15 | Outpatient (REF) | payer OTHER, MEDICAID, BC ==
[~2021-03-15] MED LIST changes: -CLIN150C15 PO; +CLIN150C17 PO
== END ==
LOC: M LAB REF 12:43
PROVIDERS: ATTEND Podiatrist
DX: M79.671 Pain in right foot (principal); L97.512 Non-pressure chronic ulcer of other part of right foot with fat layer exposed

== ENCOUNTER → 2021-05-24 | Outpatient (CLI) | payer OTHER, MEDICAID, BC ==
[2021-05-24 12:10] LABS: HEMATOCRIT 37.7 % (36.0-47.0); HEMOGLOBIN 12.3 g/dl (12.0-15.5); MEAN CORPUSCULAR HEMOGLOBIN 28.5 pg (27.0-33.0); MEAN CORPUSCULAR HGB CONC 32.6 g/dl (32.0-36.5); MEAN CORPUSCULAR VOLUME 87.3 fl (80.0-96.0); PLATELET COUNT, AUTOMATED 419 10^3/uL (150-450); RED BLOOD COUNT 4.32 10^6/uL (4.00-5.40); WHITE BLOOD COUNT 6.5 10^3/uL (4.0-10.0)
[2021-05-24 12:34] LABS: ALBUMIN 3.2 GM/DL (3.2-5.2); ALT/SGPT 20 U/L (12-78); BILIRUBIN,TOTAL 0.5 MG/DL (0.2-1.0); BLOOD UREA NITROGEN 19 MG/DL (7-18); CALCIUM LEVEL 9.8 MG/DL (8.5-10.1); CARBON DIOXIDE LEVEL 30 MEQ/L (21-32); CHLORIDE LEVEL 105 MEQ/L (98-107); CHOLESTEROL LEVEL 135 MG/DL (<200); CHOLESTEROL RISK RATIO 3.461 (<5); CREATININE FOR GFR 0.83 MG/DL (0.55-1.30); GLOMERULAR FILTRATION RATE > 60.0 (>51); GLUCOSE, FASTING 114 MG/DL (70-100); HDL CHOLESTEROL 39 MG/DL (>40); LDL CHOLESTEROL 77 MG/DL (<100); NON-HDL-C 96 MG/DL; POTASSIUM SERUM 4.8 MEQ/L (3.5-5.1); SODIUM LEVEL 140 MEQ/L (136-145); TOTAL PROTEIN 7.8 GM/DL (6.4-8.2); TRIGLYCERIDES LEVEL 95 MG/DL (<150)
[2021-05-24 13:02] LABS: HEMOGLOBIN A1c 7.5 %
== END ==
LOC: M WUC 09:33
PROVIDERS: ATTEND Physician Assistant
DX: E11.621 Type 2 diabetes mellitus with foot ulcer (principal)

== ENCOUNTER → 2021-05-25 | Outpatient (REF) | payer OTHER, MEDICAID, BC | LOC: M LAB REF 15:39 | PROVIDERS: ATTEND Podiatrist | DX: L97.512 Non-pressure chronic ulcer of other part of right foot with fat layer exposed (principal); M79.671 Pain in right foot ==

== ENCOUNTER → 2021-07-26 | Outpatient (REF) | payer OTHER ==
[~2021-07-26] MED LIST changes: +AMLO1TAB25 PO; +ASPI-226 PO; +FLUO10CA18 PO; -GABA-1171; +GABA-1171 PO; -HYDR50TA70; +HYDR50TA70 PO; -LISI-898 PO; +LISI5TAB11 PO; +LOPI600T PO; +METO50TA7 PO; +MINO100C4 PO
== END ==
LOC: M LAB REF 12:32
PROVIDERS: ATTEND Podiatrist
DX: L03.125 Acute lymphangitis of right lower limb (principal); M79.671 Pain in right foot

== ENCOUNTER → 2021-08-11 | Outpatient (CLI) | payer OTHER | LOC: M LABSMTC 10:09 | PROVIDERS: ATTEND Anesthesiology | DX: Z01.812 Encounter for preprocedural laboratory examination (principal); Z20.822 Contact with and (suspected) exposure to COVID-19 ==

== ENCOUNTER 2021-08-16 06:17 | Day surgery (SDC) | payer OTHER ==
[~2021-08-16] VITALS: Ht 162.6 cm; Wt 98.9 kg
[~2021-08-16 06:17] MED LIST changes: +NS 1,000 ML IV ONE
[2021-08-16] MEDS ORDERED: propofoL 200 MG/20 ML VIAL As Ordered ONE ×2 (06:34→07:54)
[2021-08-16] MEDS ORDERED: LIDOCAINE 2% 100MG/5ML SDV (FOR ANES.) As Ordered ONE (06:34)
[2021-08-16] MEDS ORDERED: fentaNYL 100 MCG/2 ML INJECTION As Ordered ONE (07:52)
[2021-08-16 08:56] VITALS: BP 144/72
== END 2021-08-16 09:15 | disposition home or self-care (01) ==
LOC: M OPP 06:17
PROVIDERS: ATTEND Surgery
DX: K63.89 Other specified diseases of intestine (principal); K62.1 Rectal polyp; K62.89 Other specified diseases of anus and rectum; K64.4 Residual hemorrhoidal skin tags; K59.00 Constipation, unspecified; K57.30 Diverticulosis of large intestine without perforation or abscess without bleeding; I10 Essential (primary) hypertension; E78.5 Hyperlipidemia, unspecified; E11.9 Type 2 diabetes mellitus without complications; F32.A Depression, unspecified; Z79.899 Other long term (current) drug therapy
CPT/HCPCS: 45380; 88305; J3010

== ENCOUNTER → 2021-08-17 | Outpatient (REF) | payer OTHER ==
[~2021-08-17] MED LIST changes: -NS 1,000 ML IV ONE
== END ==
LOC: M LAB REF 15:49
PROVIDERS: ATTEND Podiatrist
DX: L03.125 Acute lymphangitis of right lower limb (principal); M79.671 Pain in right foot